=== PATIENT | female | born 1960 | race Caucasian/White ===

== ENCOUNTER → 2019-04-30 07:35 | Outpatient (BNVA) | payer MEDICARE, MEDICAID, SELFPAY | PROVIDERS: Family Provider Internal Medicine; Visit Provider Nurse Practitioner Psychiatric/Mental Health | DX: F33.41 Major depressive disorder, recurrent, in partial remission (principal); F41.9 Anxiety disorder, unspecified; F43.12 Post-traumatic stress disorder, chronic; F17.200 Nicotine dependence, unspecified, uncomplicated | CPT/HCPCS: 99214 ==

== ENCOUNTER → 2019-08-02 08:06 | Outpatient (BNVA) | payer MEDICARE, MEDICAID, SELFPAY | PROVIDERS: Family Provider Internal Medicine; Visit Provider Nurse Practitioner Psychiatric/Mental Health | DX: F43.12 Post-traumatic stress disorder, chronic (principal); F41.9 Anxiety disorder, unspecified; F33.1 Major depressive disorder, recurrent, moderate | CPT/HCPCS: 99212 ==

== ENCOUNTER 2019-10-04 20:00 | Outpatient (CLI) | payer MEDICARE, MEDICAID, SELFPAY | END 2019-10-04 20:01 | disposition home or self-care (01) | LOC: SLEEP 10-05 10:23 | PROVIDERS: Family Provider Internal Medicine; Visit Provider Nurse Practitioner Family | DX: G47.33 Obstructive sleep apnea (adult) (pediatric) (principal) | CPT/HCPCS: 95811 ==

== ENCOUNTER → 2019-11-12 09:51 | Outpatient (BNVA) | payer MEDICARE, MEDICAID, SELFPAY | PROVIDERS: Family Provider Internal Medicine; Visit Provider Nurse Practitioner Psychiatric/Mental Health | DX: F43.12 Post-traumatic stress disorder, chronic (principal); F41.9 Anxiety disorder, unspecified; F33.41 Major depressive disorder, recurrent, in partial remission; F17.200 Nicotine dependence, unspecified, uncomplicated; F10.20 Alcohol dependence, uncomplicated | CPT/HCPCS: G0463 ==

== ENCOUNTER 2019-12-17 20:00 | Outpatient (CLI) | payer MEDICARE, MEDICAID, SELFPAY | END 2019-12-17 20:01 | disposition home or self-care (01) | LOC: SLEEP 12-18 09:29 | PROVIDERS: Family Provider Internal Medicine; Visit Provider Nurse Practitioner Family | DX: G47.33 Obstructive sleep apnea (adult) (pediatric) (principal) | CPT/HCPCS: 95811 ==

== ENCOUNTER → 2020-09-15 07:40 | Outpatient (BNVA) | payer MEDICARE, MEDICAID, SELFPAY | PROVIDERS: Family Provider Internal Medicine; Visit Provider Nurse Practitioner Psychiatric/Mental Health | DX: F33.41 Major depressive disorder, recurrent, in partial remission (principal); F43.12 Post-traumatic stress disorder, chronic; F41.9 Anxiety disorder, unspecified; F17.200 Nicotine dependence, unspecified, uncomplicated | CPT/HCPCS: 99213 ==

== ENCOUNTER → 2020-09-18 08:07 | Outpatient (BNVA) | payer MEDICARE, MEDICAID, SELFPAY | PROVIDERS: Family Provider Internal Medicine; Visit Provider Nurse Practitioner Psychiatric/Mental Health | DX: F33.41 Major depressive disorder, recurrent, in partial remission (principal) | CPT/HCPCS: 80061; 83036 ==

== ENCOUNTER 2020-10-08 07:17 | Outpatient (CLI) | payer MEDICARE, MEDICAID, SELFPAY ==
--- NOTE | 2020-10-08 07:22 | CT_ITS ---
WS: [id number] LDCT LUNG CANCER SCREENING HISTORY: HISTORY OF TOBACCO USE TECHNIQUE: Axial imaging performed from the apices to 1 cm below the costophrenic angles. Coronal and sagittal reformats are submitted with axial MIP series. All CT scans at [facility] use at least one of these dose optimization techniques: automated exposure control; mA and/or kV adjustment per patient size (includes targeted exams where dose is matched to clinical indication); or iterativ e reconstruction. DLP: 82.27 mGy.cm DIvol: 2.53 mGy COMPARISON: None available. Diagnostic quality: Satisfactory Lung Nodules: None. Lungs: Mild hyperexpansion from emphysema. Heart: Normal size heart. No effusion. Other findings: Small mediastinal and hilar lymph nodes. CT/CT lung screening [id number] IMPRESSION: LUNG-RADS: 1-Negative FOLLOW UP: 12 Month: Continue annual screening with LDCT OTHER FINDINGS (S MODIFIER): None.
== END 2020-10-08 07:18 | disposition home or self-care (01) ==
LOC: CT 07:18
PROVIDERS: PCP Internal Medicine; Visit Provider Internal Medicine
DX: Z12.2 Encounter for screening for malignant neoplasm of respiratory organs (principal); Z87.891 Personal history of nicotine dependence
CPT/HCPCS: 71271

== ENCOUNTER → 2020-10-13 07:31 | Outpatient (BNVA) | payer MEDICARE, MEDICAID, SELFPAY | PROVIDERS: PCP Internal Medicine; Visit Provider Nurse Practitioner Psychiatric/Mental Health | DX: F43.12 Post-traumatic stress disorder, chronic (principal); F41.9 Anxiety disorder, unspecified; F33.41 Major depressive disorder, recurrent, in partial remission; F17.200 Nicotine dependence, unspecified, uncomplicated | CPT/HCPCS: 99213 ==

== ENCOUNTER → 2020-12-04 08:29 | Outpatient (BNVA) | payer MEDICARE, MEDICAID, SELFPAY | PROVIDERS: PCP Internal Medicine; Visit Provider Nurse Practitioner Psychiatric/Mental Health | DX: F43.12 Post-traumatic stress disorder, chronic (principal); F41.9 Anxiety disorder, unspecified; F33.41 Major depressive disorder, recurrent, in partial remission | CPT/HCPCS: 99213 ==

== ENCOUNTER 2021-02-10 14:19 | Outpatient (CLI) | payer MEDICARE, MEDICAID, SELFPAY | END 2021-02-10 14:20 | disposition home or self-care (01) | LOC: WOUND 14:20 | PROVIDERS: PCP Internal Medicine; Visit Provider Nurse Practitioner Family | DX: E11.621 Type 2 diabetes mellitus with foot ulcer (principal); L97.522 Non-pressure chronic ulcer of other part of left foot with fat layer exposed; F17.210 Nicotine dependence, cigarettes, uncomplicated; I10 Essential (primary) hypertension; J44.9 Chronic obstructive pulmonary disease, unspecified | CPT/HCPCS: 11042; G0463 ==

== ENCOUNTER 2021-02-17 13:48 | Outpatient (CLI) | payer MEDICARE, MEDICAID, SELFPAY | END 2021-02-17 13:49 | disposition home or self-care (01) | LOC: WOUND 13:49 | PROVIDERS: PCP Internal Medicine; Visit Provider Nurse Practitioner Family | DX: E11.621 Type 2 diabetes mellitus with foot ulcer (principal); L97.522 Non-pressure chronic ulcer of other part of left foot with fat layer exposed; F17.210 Nicotine dependence, cigarettes, uncomplicated; J44.9 Chronic obstructive pulmonary disease, unspecified; I10 Essential (primary) hypertension | CPT/HCPCS: 11042 ==

== ENCOUNTER → 2021-03-05 07:51 | Outpatient (BNVA) | payer MEDICARE, MEDICAID, SELFPAY | PROVIDERS: PCP Internal Medicine; Visit Provider Nurse Practitioner Psychiatric/Mental Health | DX: F43.12 Post-traumatic stress disorder, chronic (principal); F41.9 Anxiety disorder, unspecified; F33.41 Major depressive disorder, recurrent, in partial remission | CPT/HCPCS: 99213 ==

== ENCOUNTER → 2021-05-28 12:38 | Outpatient (BNVA) | payer MEDICARE, MEDICAID, SELFPAY | PROVIDERS: PCP Internal Medicine; Visit Provider Nurse Practitioner Psychiatric/Mental Health | DX: F43.12 Post-traumatic stress disorder, chronic (principal); F41.9 Anxiety disorder, unspecified; F33.41 Major depressive disorder, recurrent, in partial remission; Z79.899 Other long term (current) drug therapy | CPT/HCPCS: 99213 ==

== ENCOUNTER 2021-07-06 12:25 | Outpatient (CLI) | payer MEDICARE, MEDICAID, SELFPAY ==
--- NOTE | 2021-07-06 13:06 | MM_ITS ---
WS: [id number] BILATERAL 3D TOMOSYNTHESIS DIGITAL SCREENING MAMMOGRAPHY WITH CAD CLINICAL INFORMATION: SCREEN HISTORY: Screening mammogram. No current complaints. COMPARISON: None. TECHNIQUE: Bilateral CC and MLO views. FINDINGS: Scattered fibroglandular densities bilaterally. Dystrophic calcification RIGHT breast. A few punctate and lucent centered calcifications. No suspicious focal mass, asymmetry, calcifications, or architec tural distortion. No evidence of malignancy. MM/[place] [id number] IMPRESSION: BI-RADS: 2-Benign FOLLOW UP: 1 Year Follow-up Recommend return to annual screening mammography.
--- NOTE | 2021-07-06 13:27 | XR_ITS ---
WS: [id number] Exam: XR knee LT 3V* [id number] Date/Time of Exam: 07/06/2021 1:54 PM Reason For Exam: CHRONIC RHEUMATOID ARTHRITIS/KNEE ARTHRALGIA No acute fracture or dislocation. Slight narrowing of the medial joint compartment. Small effusion in the suprapatellar bursa. XR/XR knee LT 3V* [id number] IMPRESSION: 1. Mild degenerative change of the medial joint compartment. Small joint effusi on. 2. No fracture.
--- NOTE | 2021-07-06 13:27 | XR_ITS ---
WS: [id number] Exam: XR knee RT 3V* [id number] Date/Time of Exam: 07/06/2021 1:54 PM Reason For Exam: CHRONIC RHEUMATOID ARTHRITIS/KNEE ARTHRALGIA No acute fracture or dislocation. Mild to moderate narrowing of the medial joint compartment. No sign ificant joint effusion seen. XR/XR knee RT 3V* [id number] IMPRESSION: 1. Degenerative thinning of the medial joint compartment. 2. No fracture or joint effusion.
== END 2021-07-06 12:26 | disposition home or self-care (01) ==
LOC: RADSHAW 12:28
PROVIDERS: PCP Internal Medicine; Visit Provider Family Medicine
DX: M06.9 Rheumatoid arthritis, unspecified (principal); M17.0 Bilateral primary osteoarthritis of knee; M25.562 Pain in left knee; M25.561 Pain in right knee; M25.462 Effusion, left knee; Z12.31 Encounter for screening mammogram for malignant neoplasm of breast
CPT/HCPCS: 73562; 77063; 77067

== ENCOUNTER → 2021-09-01 09:13 | Outpatient (BNVA) | payer MEDICARE, MEDICAID, SELFPAY | PROVIDERS: PCP Internal Medicine; Referring Provider Family Medicine; Visit Provider Internal Medicine | DX: J44.9 Chronic obstructive pulmonary disease, unspecified (principal); Z99.81 Dependence on supplemental oxygen; M06.9 Rheumatoid arthritis, unspecified; Z11.59 Encounter for screening for other viral diseases; R76.8 Other specified abnormal immunological findings in serum; F17.210 Nicotine dependence, cigarettes, uncomplicated | CPT/HCPCS: 36415; 80053; 85025; 85651; 86140; 86200; 86704; 87340; 99204 ==

== ENCOUNTER → 2021-09-14 08:57 | Outpatient (BNVA) | payer MEDICARE, MEDICAID, SELFPAY | PROVIDERS: PCP Internal Medicine; Visit Provider Nurse Practitioner Psychiatric/Mental Health | DX: F33.41 Major depressive disorder, recurrent, in partial remission (principal); Z79.899 Other long term (current) drug therapy | CPT/HCPCS: 80061; 83036; 99214 ==

== ENCOUNTER → 2021-09-17 10:43 | Outpatient (BNVA) | payer MEDICARE, MEDICAID, SELFPAY | PROVIDERS: PCP Family Medicine; Visit Provider Internal Medicine | DX: M05.9 Rheumatoid arthritis with rheumatoid factor, unspecified (principal); Z99.81 Dependence on supplemental oxygen | CPT/HCPCS: 93005; 99214 ==

== ENCOUNTER 2021-09-17 12:00 | Outpatient (CLI) | payer MEDICARE, MEDICAID, SELFPAY ==
--- NOTE | 2021-09-17 13:38 | ECG_ITS ---
[facility] Test Date: 2021-09-17 Pat Name: Amy Black Department: Room: Gender: Female Veterans Services Specialist: : 1960 Requested By: Eusebio Cortez Order Number: [id number] Iza MD: Lalo Faustin M.D. Measurements Intervals [place] Rate: 75 P: 68 [place]: 173 QRS: 67 QRSD: 90 T: 48 QT: 369 QTc: 415 Interpretive Statements SINUS RHYTHM LOW QRS VOLTAGE IN PRECORDIAL LEADS [QRS DEFLECTION < 1.0 mV IN CHEST LEADS] No previous ECG available for comparison Electronically Signed On 09-17-2021 18:59:42 CDT by Lalo Faustin M.D. [email or web address] Networksmemorial hospital at gulfportiHydroRunregency hospital clevel[facility] west.[employer]/store/NU/[id number] f
== END 2021-09-17 12:01 | disposition home or self-care (01) ==
LOC: RT 12:03
PROVIDERS: PCP Family Medicine; Visit Provider Internal Medicine
DX: Z99.81 Dependence on supplemental oxygen (principal)
CPT/HCPCS: 93005

== ENCOUNTER → 2021-09-28 12:39 | Outpatient (BNVA) | payer MEDICARE, MEDICAID, SELFPAY | PROVIDERS: PCP Family Medicine; Visit Provider Internal Medicine Pulmonary Disease | DX: J44.9 Chronic obstructive pulmonary disease, unspecified (principal); Z99.81 Dependence on supplemental oxygen; R06.00 Dyspnea, unspecified; Z71.6 Tobacco abuse counseling; Z12.2 Encounter for screening for malignant neoplasm of respiratory organs; F33.41 Major depressive disorder, recurrent, in partial remission; F17.210 Nicotine dependence, cigarettes, uncomplicated | CPT/HCPCS: 99204 ==

== ENCOUNTER → 2021-10-26 13:11 | Outpatient (BNVA) | payer MEDICARE, MEDICAID, SELFPAY | PROVIDERS: PCP Family Medicine; Visit Provider Internal Medicine Pulmonary Disease | DX: R06.00 Dyspnea, unspecified (principal); J44.9 Chronic obstructive pulmonary disease, unspecified; Z99.81 Dependence on supplemental oxygen; F17.200 Nicotine dependence, unspecified, uncomplicated; Z71.6 Tobacco abuse counseling; Z12.2 Encounter for screening for malignant neoplasm of respiratory organs | CPT/HCPCS: 99214 ==

== ENCOUNTER 2021-11-05 13:10 | Outpatient (CLI) | payer MEDICARE, MEDICAID, SELFPAY ==
--- NOTE | 2021-11-05 14:20 | PFTS_ITS ---
Date of Study:11/05/21 Date of Dictation: MECHANICS: Forced vital capacity (FVC) is reduced. Forced expiratory volume in one second (FEV1) is reduced. FEV1/FVC is reduced. FLOW VOLUME LOOP: Reduced flow at all lung volumes with scooping. LUNG VOLUMES: Total lung capacity (TLC) is normal. Residual volume (RV) is increased. DIFFUSING CAPACITY FOR CARBON MONOXIDE: Mildly reduced. INTERPRETATION: The prebronchodilator spirometry is consistent with severe airflow obstruction. The postbronchodilator spirometry is consistent with moderate airflow obstruction. There is a significant postbronchodilator response. Lung volumes are consistent with air trapping. Gas exchange (DLCO) is mildly reduced. MTDD
== END 2021-11-05 13:11 | disposition home or self-care (01) ==
LOC: RT 13:14
PROVIDERS: PCP Family Medicine; Visit Provider Internal Medicine Pulmonary Disease
DX: J44.9 Chronic obstructive pulmonary disease, unspecified (principal); Z99.81 Dependence on supplemental oxygen
CPT/HCPCS: 94060; 94618; 94726; 94729; J7611

== ENCOUNTER 2021-11-12 13:35 | Outpatient (CLI) | payer MEDICARE, MEDICAID, SELFPAY ==
--- NOTE | 2021-11-12 13:44 | CT_ITS ---
WS: [id number] LDCT LUNG CANCER SCREENING TECHNIQUE: Noncontrast CT of the chest with coronal and sagittal reformatted images. CLINICAL INFORMATION: lung screening COMPARISON: 10/08/20 DLP: 76.19 mGy.cm DIvol: Mean CTDIvol: 1.60 (mGy) All CT scans at [facility] use at least one of these dose optimization techniques: automat ed exposure control; mA and/or kV adjustment per patient size (includes targeted exams where dose is matched to clinical indication); or iterative reconstruction. FINDINGS: Lungs are well aerated. Slight subsegmental atelectasis in the lingula. No acute pulmonary infiltrates. No new suspicious pulmonary parenchymal abnormalities. A few prominent peribronchial lymph nodes unchanged. Adrenal glands are normal. Normal GE junction. Normal caliber thoracic aorta. Normal aortic arch. Nor mal descending thoracic aorta. No axillary lymphadenopathy. Hypertrophic changes thoracic spine. CT/CT lung screening [id number] IMPRESSION: LUNG-RADS: 1-Negative FOLLOW UP: 12 Month: Continue annual screening with LDCT
== END 2021-11-12 13:36 | disposition home or self-care (01) ==
LOC: RAD 13:37
PROVIDERS: PCP Family Medicine; Visit Provider Internal Medicine Pulmonary Disease
DX: Z12.2 Encounter for screening for malignant neoplasm of respiratory organs (principal); F17.210 Nicotine dependence, cigarettes, uncomplicated
CPT/HCPCS: 71271

== ENCOUNTER → 2021-11-24 12:26 | Outpatient (BNVA) | payer MEDICARE, OTHER, MEDICAID, SELFPAY | PROVIDERS: PCP Family Medicine; Visit Provider Internal Medicine Pulmonary Disease | DX: R06.00 Dyspnea, unspecified (principal); J43.9 Emphysema, unspecified; Z99.81 Dependence on supplemental oxygen; Z71.6 Tobacco abuse counseling; Z12.2 Encounter for screening for malignant neoplasm of respiratory organs; F17.210 Nicotine dependence, cigarettes, uncomplicated | CPT/HCPCS: 99214 ==

== ENCOUNTER → 2021-12-09 10:23 | Outpatient (BNVA) | payer MEDICARE, MEDICAID, SELFPAY | PROVIDERS: PCP Family Medicine; Visit Provider Internal Medicine | DX: M05.9 Rheumatoid arthritis with rheumatoid factor, unspecified (principal); J44.9 Chronic obstructive pulmonary disease, unspecified; Z99.81 Dependence on supplemental oxygen | CPT/HCPCS: 99213; 99214 ==

== ENCOUNTER 2022-11-24 14:42 | Outpatient (CLI) | payer OTHER, MEDICARE, MEDICAID, SELFPAY ==
--- NOTE | 2022-11-24 14:52 | MM_ITS ---
WS: [id number] BILATERAL 3D TOMOSYNTHESIS DIGITAL SCREENING MAMMOGRAPHY WITH CAD CLINICAL INFORMATION: SCREENING HISTORY: Screening mammogram. No current complaints. COMPARISON: 2021 TECHNIQUE: Bilateral CC and MLO views. FINDINGS: The breasts are composed of heterogeneous fibroglandular density tissue, which can limit the detectio n of small underlying mass lesions. Increasing asymmetric density outer LEFT breast near the 3 o'cloc k position and measuring 8 mm. Recommend LEFT breast diagnostic mammography and ultrasound if persist ent. Prominent dystrophic calcification RIGHT breast unchanged. A few incidental punctate and lucent cente red calcifications bilaterally. Stable clustered calcifications posterior RIGHT breast. RIGHT breast is unchanged and unremarkable. IMPRESSION: MM/[place] [id number] BI-RADS: 0-Incomplete: Need additional imaging evaluation FOLLOW UP: Need Additional Imaging
== END 2022-11-24 14:43 | disposition home or self-care (01) ==
LOC: RAD 14:48
PROVIDERS: PCP Family Medicine; Visit Provider Family Medicine
DX: Z12.31 Encounter for screening mammogram for malignant neoplasm of breast (principal)
CPT/HCPCS: 77063; 77067

== ENCOUNTER 2022-12-30 10:35 | Outpatient (CLI) | payer MEDICARE, MEDICAID, SELFPAY ==
--- NOTE | 2022-12-30 10:53 | MM_ITS ---
WS: [id number] LEFT 3D TOMOSYNTHESIS DIGITAL MAMMOGRAPHY WITH CAD CLINICAL INFORMATION: ABNORMAL MAMMO HISTORY: Additional views COMPARISON: 11/24/2022 TECHNIQUE: 3 views of the left breast were obtained. FINDINGS: Scattered fibroglandular densities of the left breast. Stable asymmetric density outer LEFT breast ne ar the 3 o'clock position. LEFT breast ultrasound is pending. ULTRASOUND BREAST LEFT TECHNIQUE: Ultrasound left breast focused area of concern. CLINICAL INFORMATION: ABNORMAL MAMMO FINDINGS: Ultrasound LEFT breast at the 2 to 4 o'clock position. Dense underlying parenchymal tissue. No suspic ious cystic or solid lesions. No lesions to target for biopsy. Recommend return to annual screen mamm ography. IMPRESSION: MM/[place] [id number] BI-RADS: 2-Benign FOLLOW UP: 1 Year Follow-up Recommend return to annual screening mammography.
== END 2022-12-30 10:36 | disposition home or self-care (01) ==
PROVIDERS: PCP Family Medicine; Visit Provider Family Medicine
DX: R92.8 Other abnormal and inconclusive findings on diagnostic imaging of breast (principal)
CPT/HCPCS: 76642; 77061; G0279

== ENCOUNTER 2023-01-31 19:26 | Emergency (ER) | payer MEDICARE, MEDICAID, SELFPAY ==
[2023-01-31 19:27] VITALS: BP 159/86; PULSE 115; RESP 20; TEMP 36.6; O2SAT 91; BMI 33.6
--- NOTE | 2023-01-31 19:32 | XRR_ITS ---
PROCEDURE INFORMATION: Exam: XR Chest Exam date and time: 01/31/2023 7:58 PM Age: 62 years old Clinical indication: Shortness of breath; Additional info: SOB TECHNIQUE: Imaging protocol: Radiologic exam of the chest. Views: 1 view. COMPARISON: CT lung screening [id number] 11/12/2021 1:51 PM FINDINGS: Lungs: Lungs are clear bilaterally. Pleural spaces: No pleural effusion. No pneumothorax. Heart/Mediastinum: The cardiac silhouette and mediastinal contours are unremarkable. Vasculature: Vascular calcifications in the aorta. Bones/joints: Unremarkable for age. XR/XR chest 1V portable [id number] IMPRESSION: 1. No acute cardiopulmonary process. 2. Incidental/nonacute findings are listed in the report.
--- NOTE | 2023-01-31 19:45 | W.ED.SOB ---
HPI - SOB/Dyspnea General: Chief Complaint: Shortness of Breath/Dyspnea Stated Complaint: difficulty breathing Time Seen by Provider: 01/31/23 19:27 Source: patient and EMS Mode of arrival: EMS Limitations: no limitations History of Present Illness: HPI Narrative: 62-year-old female who has a long history of COPD she is on 4 L oxygen at baseline states over the last 2 days she has had increasing wheezing and shortness of breath states she had a productive cough as well EMS given her per terbutaline Decadron and a breathing treatment in route she is currently 93% on her 4 L she denies any fevers denies any chest pain. Associated symptoms: Deny abdominal pain, chest pain, fever(s), nausea or vomiting Review of Systems Const: Denies: fever(s), chills, body aches or change in appetite ENMT: Denies: throat pain or dental pain Card: Denies: chest pain Resp: Reports: dyspnea and productive cough GI: Denies: abdominal pain, nausea, vomiting or diarrhea Musc: Denies: neck pain or back pain Skin/Breast: Denies: rash Neuro: Denies: headache(s) Psych: Denies: depression PFSH ED PFSH: Medical History Anxiety disorder, unspecified Chronic post-traumatic stress disorder (PTSD) COPD (chronic obstructive pulmonary disease) Major depressive disorder, recurrent, in partial remission Major depressive disorder, recurrent, moderate See subjective information below. Other fci (current) drug therapy Oxygen dependent Rheumatoid factor positive Tobacco use disorder Social History Smoking and tobacco/nicotine status: current every day tobacco/nicotine user cigarettes Packs smoked per day: 1.5 Years cigarettes smoked: 50 [ Other cigarette details: 1ppd ] Quit status (tobacco/nicotine): has tried quititng Number of times tried to quit tobacco: 2 Second hand smoke exposure: Yes Physical Exam Const: COMMON NORMALS: patient oriented x3 HENMT: COMMON NORMALS: normocephalic and atraumatic HEAD & SCALP: normocephalic and atraumatic Eye: COMMON NORMALS: Equal, round and reactive pupils present and EOMs intact bilaterally PUPIL: Yes Equal, round and reactive pupils present Neck/C-Spine: COMMON NORMALS: full ROM and supple Chest: COMMONS NORMALS: normal inspection of the chest and normal palpation of entire chest wall Resp: COMMON NORMALS: No retractions and No use of accessory muscles AUSCULTATION: wheezes Cardio: COMMON NORMALS: regular rhythm and No murmurs present (Cardio) RATE: tachycardic RHYTHM: regular rhythm GI: COMMON NORMALS: Normal to inspection, nondistended, normoactive bowel sounds present, Soft to palpation, non-tender and no masses PALPATION: Yes Soft to palpation Extremity: COMMON NORMALS: normal to inspection and full ROM Neuro: COMMON NORMALS: patient oriented x3, moves all extremities and no focal motor deficits Psych: COMMON NORMALS: mental status grossly normal, Normal thought process present and cooperative THOUGHT PROCESS: Normal thought process present Skin: COMMON NORMALS: no rashes or lesions noted and no wounds GENERAL SKIN EXAM: no rashes or lesions noted Course Vital Signs: Vital signs: Vital Signs Temperature 97.8 F 01/31/23 19:27 Pulse Rate 103 H 01/31/23 20:49 Respiratory Rate 18 01/31/23 20:49 Blood Pressure 112/86 01/31/23 20:49 Pulse Oximetry 91 01/31/23 20:49 Oxygen Delivery Me thod Nasal Cannula 01/31/23 20:37 Oxygen Flow Rate 4 01/31/23 20:37 MDM - SOB/Dyspnea Medical Decision Making Patient presents here with a COPD exacerbation along with likely bronchitis she has coughed up green sputum we will place her on antibiotics along with a 5-day steroid course she is much improved after breathing treatments she is 93% here on her 4 L no severe hypoxia no pneumonia she is to follow-up with her PCP and return if worsening she understands agrees to plan. Medical Records I reviewed the patient's medical records. Lab Data I reviewed the patient's lab results. 01/31/23 19:47 01/31/23 19:47 Labs/Radiology: Radiology Impressions Chest X-Ray 01/31/23 19:32 IMPRESSION: 1. No acute cardiopulmonary process. 2. Incidental/nonacute findings are listed in the report. Laboratory Results WBC 13.83 10^3/uL (3.29-11.43) H 01/31/23 19:47 RBC 4.77 10^6/uL (3.85-5.65) 01/31/23 19:47 Hgb 13.60 g/dL (11.27-16.99) 01/31/23 19:47 Hct 42.5 % (36-47) 01/31/23 19:47 MCV 89.1 fl (85-98) 01/31/23 19:47 MCH 28.5 pg (27-33) 01/31/23 19:47 MCHC 32.0 g/dL (30-55) 01/31/23 19:47 RDW 13.8 % (12.1-15.1) 01/31/23 19:47 Plt Count 299 10^3/cmm (157-399) 01/31/23 19:47 MPV 10.7 fL (7.4-10.4) H 01/31/23 19:47 Neut % (Auto) 70.8 % 01/31/23 19:47 Lymph % (Auto) 18.9 % 01/31/23 19:47 Tyler % (Auto) 7.4 % 01/31/23 19:47 Eos % (Auto) 2.2 % 01/31/23 19:47 Baso % (Auto) 0.3 % 01/31/23 19:47 Neut # (Auto) 9.80 10^3/uL (1.8-7.7) H 01/31/23 19:47 Lymph # (Auto) 2.6 10^3/uL (0.8-4.8) 01/31/23 19:47 Tyler # (Auto) 1.0 10^3/uL (0.2-0.9) H 01/31/23 19:47 Eos # (Auto) 0.3 10^3/uL (0.0-0.8) 01/31/23 19:47 Baso # (Auto) 0.0 10^3/uL (0.0-0.1) 01/31/23 19:47 Nucleated RBC % (auto) 0 % 01/31/23 19:47 Nucleated RBCs # 0.0 /100WBC 01/31/23 19:47 Specimen Type Arterial 01/31/23 19:41 Sample Site Radial, right 01/31/23 19:41 ABG pH 7.39 (7.35-7.45) 01/31/23 19:41 ABG pCO2 49.3 mmHg (35-45) H 01/31/23 19:41 ABG pO2 51.9 mmHg (80.0-100.0) L 01/31/23 19:41 ABG HCO3 29.5 mmol/L (22-26) H 01/31/23 19:41 ABG Base Excess 3.4 mmol/L (-2.0-2.0) H 01/31/23 19:41 Frankie Test Pos 01/31/23 19:41 Hematocrit 41.3 % (37-47) 01/31/23 19:41 Hgb O2 Saturation 85.7 % (95-100) L 01/31/23 19:41 Carboxyhemoglobin 2.2 %THgb (0.4-20.1) 01/31/23 19:41 Methemoglobin 0.3 % (0.4-1.5) L 01/31/23 19:41 Total Hemoglobin 13.5 g/dL (12-16) 01/31/23 19:41 O2 Delivery Device Nc 01/31/23 19:41 O2 Liters/Min 4.0 % 01/31/23 19:41 Licensed Occupational Therapist ID [place] 01/31/23 19:41 Sodium 138 mmol/L (136-145) 01/31/23 19:47 Potassium 3.9 mmol/L (3.5-5.1) 01/31/23 19:47 Chloride 98 mmol/L (98-107) 01/31/23 19:47 Carbon Dioxide 30 mmol/L (22-29) H 01/31/23 19:47 Anion Gap 13.9 (5-19) 01/31/23 19:47 BUN 12 mg/dL (8-23) 01/31/23 19:47 Creatinine 0.5 mg/dL (0.5-0.9) 01/31/23 19:47 GFR Calculation 125.9 mL/min (90-130) 01/31/23 19:47 Glucose 132 mg/dL (65-115) H 01/31/23 19:47 Calculated Osmolality 288 mOsm/kg (285-295) 01/31/23 19:47 Calcium 9.4 mg/dL (8.5-10.5) 01/31/23 19:47 Total Bilirubin 0.4 mg/dL (0.15-1.2) 01/31/23 19:47 AST 14 U/L (0-32) 01/31/23 19:47 ALT 13 U/L (0-33) 01/31/23 19:47 Alkaline Phosphatase 124 U/L (35-105) H 01/31/23 19:47 NT-Pro-B Natriuret Pep 90 pg/mL (0-125) 01/31/23 19:47 Total Protein 7.0 g/dL (6.6-8.7) 01/31/23 19:47 Albumin 4.3 g/dL (3.5-5.2) 01/31/23 19:47 Globulin 2.7 g/dL (1.3-4.6) 01/31/23 19:47 All radiology interpretation(s) finalized by discharge EKG Data EKG 1: I personally reviewed and interpreted this EKG as follows: EKG Interpretation Date: 01/31/23 EKG interpretation time: 19:30 Interpretation: sinus tach hr [address] or t wave abnormalities qrs 86 qtc 378 Discharge Plan Discharge Patient Disposition: Home Clinical Impression: Acute exacerbation of chronic obstructive airways disease Condition: Stable Prescriptions: New prednisone 50 mg tablet 50 mg PO DAILY Qty: 5 0RF doxycycline hyclate 100 mg tablet 100 mg PO BID 7 Days Qty: 14 0RF No Action albuterol sulfate [Ventolin HFA] 90 mcg/actuation HFA aerosol inhaler 2 puff INHALATION Q6H PRN losartan 100 mg tablet 100 mg PO DAILY montelukast 10 mg tablet 10 mg PO DAILY atorvastatin 40 mg tablet 80 mg PO DAILY metformin 850 mg tablet 850 mg PO TID meloxicam 15 mg tablet 15 mg PO DAILY diclofenac sodium [Voltaren Arthritis Pain] 1 % gel 4 g topical QID Qty: 100 4RF Rx Instructions: apply to single knee, ankle, foot; for foot includes sole/toes/top of foot aripiprazole 10 mg tablet 10 mg PO DAILY Qty: 60 0RF Rx Instructions: one tablet by mouth every morning escitalopram oxalate 20 mg tablet 20 mg PO DAILY Qty: 60 0RF Rx Instructions: one tablet by mouth every morning buspirone 15 mg tablet 15 mg PO BID Qty: 120 0RF Rx Instructions: Take one tablet morning and evening budesonide-formoterol [Symbicort] 160-4.5 mcg/actuation HFA aerosol inhaler 1 puff inhalation BID Spiriva with HandiHaler 18 mcg capsule, w/inhalation device 1 cap inhalation DAILY Rx Instructions: puncture 1 cap using device; one dose = 2 inhalations hydroxychloroquine 200 mg tablet 200 mg PO DAILY 30 Days Qty: 30 2RF nicotine (polacrilex) 2 mg gum 2 mg buccal Q2H Qty: 20 10RF Discharge Orders: Discharge ED (Routine); Ordered 01/31/23 Ordered By: Mayra Bower Referrals: Teddy Will MD [Primary Care Provider] - 1-3 days Discharge Diet: Advance as tolerated Discharge Activity: Resume usual activity Patient Instructions: Chronic Bronchitis (ED) Coding Level of Care Code ED Sound Installation Worker for Himanshu Szymanski
[2023-01-31 19:52] LABS: ABG PCO2 49.3 mmHg (35-45); ABG PH Result 7.39 (7.35-7.45); Arterial Blood Gas Hematocrit 41.3 % (37-47); Base Excess ABG 3.4 mmol/L (-2.0-2.0); Blood Gas Allen Test Pos; Blood Gas Operator Identificat WALCI; Blood Gas Sample Site Radial, right; Blood Gas Sample Type Arterial; Carboxyhemoglobin 2.2 %THgb (0.4-20.1); HCO3 ABG 29.5 mmol/L (22-26); HGB O2 Sat 85.7 % (95-100); Methemoglobin 0.3 % (0.4-1.5); Oxygen Device NC; PO2 ABG 51.9 mmHg (80.0-100.0); Total Hemoglobin 13.5 g/dL (12-16)
[2023-01-31 19:59] LABS: Basophils % 0.3 %; Eosinophils # 0.3 10^3/uL (0.0-0.8); Eosinophils % 2.2 %; Hematocrit 42.5 % (36-47); Lymphocytes # 2.6 10^3/uL (0.8-4.8); Lymphocytes % 18.9 %; Mean Corpuscular Hemoglobin 28.5 pg (27-33); Mean Corpuscular Volume 89.1 fl (85-98); Mean Platelet Volume 10.7 fL (7.4-10.4); Monocytes % 7.4 %; Neutrophils % 70.8 %; Nucleated Red Blood Cells % 0 %; Platelet Count 299 10^3/cmm (157-399); Red Blood Count 4.77 10^6/uL (3.85-5.65); Red Cell Distribution Width 13.8 % (12.1-15.1); White Blood Count 13.83 10^3/uL (3.29-11.43)
[2023-01-31 20:23] LABS: Alanine Aminotransferase 13 U/L (0-33); Albumin Level 4.3 g/dL (3.5-5.2); Alkaline Phosphatase 124 U/L (35-105); Anion Gap 13.9 (5-19); Aspartate Amino Transferase 14 U/L (0-32); Blood Urea Nitrogen 12 mg/dL (8-23); Calcium 9.4 mg/dL (8.5-10.5); Carbon Dioxide 30 mmol/L (22-29); Chloride 98 mmol/L (98-107); Creatinine Clr Calc Pharmacy 129.1652; Globulin 2.7 g/dL (1.3-4.6); Glomerular Filtration Rate 125.9 mL/min (90-130); Glucose 132 mg/dL (65-115); NT Pro B Type Natriuretic Pept 90 pg/mL (0-125); Osmolality Calculated 288 mOsm/kg (285-295); Potassium 3.9 mmol/L (3.5-5.1); Sodium 138 mmol/L (136-145); Total Bilirubin 0.4 mg/dL (0.15-1.2)
[2023-01-31] MEDS: methylPREDNISolone sod succ 125 MG in water for injection-sterile 2 ML 24 MG IVP (20:29)
[2023-01-31 20:37] VITALS: PULSE 104; RESP 18; O2SAT 90
[2023-01-31] MEDS: albuterol 2.5 mg/3 mL Neb INHALATION (20:39)
[2023-01-31] MEDS: doxycycline 100 mg Tablet PO (20:42)
[2023-01-31 20:49] VITALS: BP 112/86; PULSE 103; RESP 18; O2SAT 91
[2023-01-31 21:07] LABS: Influenza A by IFA negative (Negative); Influenza B by IFA negative (Negative); SARS Covid-2 Antigen negative (Negative)
--- NOTE | 2023-02-01 07:14 | ECG_ITS ---
[facility] Test Date: 2023-01-31 Pat Name: Amy Black Department: Room: Gender: Female Director Of Strategic Sourcing: : 1960 Requested By: Mayra Bower Order Number: [id number] Iza MD: Heather Oviedo M.D. Measurements Intervals [place] Rate: 113 P: 78 [place]: 147 QRS: 76 QRSD: 86 T: 35 QT: 311 QTc: 427 Interpretive Statements SINUS TACHYCARDIA POSSIBLE LEFT ATRIAL ENLARGEMENT [-0.1mV P-WAVE IN V1/V2] LOW QRS VOLTAGE IN PRECORDIAL LEADS [QRS DEFLECTION < 1.0 mV IN CHEST LEADS] NONSPECIFIC T-WAVE ABNORMALITY ABNORMAL RHYTHM ECG Compared to ECG 09/17/2021 12:13:48 T-wave abnormality now present Sinus rhythm no longer present Electronically Signed On 02-01-2023 23:23:13 ICE CREAM MAN by Heather Oviedo M.D. [id number] f
== END 2023-01-31 20:53 | disposition home or self-care (01) ==
PROVIDERS: Emergency Provider Emergency Medicine; PCP Family Medicine
DX: J44.1 Chronic obstructive pulmonary disease with (acute) exacerbation (principal); Z79.84 Long term (current) use of oral hypoglycemic drugs; Z99.81 Dependence on supplemental oxygen; F17.210 Nicotine dependence, cigarettes, uncomplicated; Z11.52 Encounter for screening for COVID-19
CPT/HCPCS: 36600; 71045; 80053; 82805; 83880; 85025; 87426; 87804; 94640; 96374; 99285; J2930; J7613

== ENCOUNTER 2023-02-24 10:34 | Outpatient (CLI) | payer MEDICARE, MEDICAID, SELFPAY ==
--- NOTE | 2023-02-24 10:39 | CT_ITS ---
WS: [id number] LDCT LUNG CANCER SCREENING HISTORY: NICOTINE DEPENDENCE,CIGARETTES TECHNIQUE: Axial imaging performed from the apices to 1 cm below the costophrenic angles. Coronal and sagittal reformats are submitted with axial MIP series. All CT scans at [facility] use at least one of these dose optimization techniques: automated exposure control; mA and/or kV adjustment per patient size (includes targeted exams where dose is matched to clinical indication); or iterativ e reconstruction. DLP: 88.62 mGy.cm DIvol: Mean CTDIvol: 2.20 (mGy) COMPARISON: None available. Diagnostic quality: Satisfactory Lungs: New subpleural tagging RIGHT upper lobe. No mass or pulmonary nodule. No endobronchial lesions . Heart: Normal size heart with no pericardial effusion.. Other findings: No adenopathy. Small benign-appearing lymph nodes and mild atherosclerosis aorta. IMPRESSION: CT/CT lung screening [id number] LUNG-RADS: 2-Benign Appearance or Behavior FOLLOW UP: 12 Month: Continue annual screening with LDCT OTHER FINDINGS (S MODIFIER): None.
== END 2023-02-24 10:35 | disposition home or self-care (01) ==
LOC: RAD 10:34
PROVIDERS: PCP Family Medicine; Visit Provider Family Medicine
DX: Z12.2 Encounter for screening for malignant neoplasm of respiratory organs (principal); F17.210 Nicotine dependence, cigarettes, uncomplicated
CPT/HCPCS: 71271

== ENCOUNTER → 2023-04-26 09:18 | Outpatient (BNVA) | payer MEDICARE, MEDICAID, SELFPAY | PROVIDERS: PCP Family Medicine; Visit Provider Internal Medicine Rheumatology | DX: Z79.899 Other long term (current) drug therapy (principal); R76.8 Other specified abnormal immunological findings in serum; M05.79 Rheumatoid arthritis with rheumatoid factor of multiple sites without organ or systems involvement; Z71.85 Encounter for immunization safety counseling; M17.0 Bilateral primary osteoarthritis of knee | CPT/HCPCS: 36415; 80076; 82565; 85025; 86140; 99214 ==

== ENCOUNTER → 2023-08-23 10:02 | Outpatient (BNVA) | payer MEDICARE, MEDICAID, SELFPAY | PROVIDERS: PCP Family Medicine; Visit Provider Internal Medicine Rheumatology | DX: Z79.899 Other long term (current) drug therapy (principal); M05.79 Rheumatoid arthritis with rheumatoid factor of multiple sites without organ or systems involvement; Z71.85 Encounter for immunization safety counseling; M17.0 Bilateral primary osteoarthritis of knee | CPT/HCPCS: 99214 ==

== ENCOUNTER → 2023-11-18 07:47 | Outpatient (BNVA) | payer MEDICARE, MEDICAID, SELFPAY | PROVIDERS: PCP Family Medicine; Visit Provider Internal Medicine Critical Care Medicine | DX: Z12.2 Encounter for screening for malignant neoplasm of respiratory organs; J96.21 Acute and chronic respiratory failure with hypoxia; J96.22 Acute and chronic respiratory failure with hypercapnia; J44.9 Chronic obstructive pulmonary disease, unspecified; E66.9 Obesity, unspecified; R53.81 Other malaise; Z68.32 Body mass index [BMI] 32.0-32.9, adult; Z71.82 Exercise counseling; Z71.6 Tobacco abuse counseling; F17.210 Nicotine dependence, cigarettes, uncomplicated | CPT/HCPCS: 99214 ==

== ENCOUNTER → 2023-12-22 10:51 | Outpatient (BNVA) | payer MEDICARE, MEDICAID, SELFPAY | PROVIDERS: PCP Family Medicine; Visit Provider Student in an Organized Health Care Education/Training Program | DX: Z12.11 Encounter for screening for malignant neoplasm of colon (principal) | CPT/HCPCS: 99024; 99204 ==

== ENCOUNTER → 2024-01-16 09:10 | Outpatient (BNVA) | payer MEDICARE, MEDICAID, SELFPAY | PROVIDERS: PCP Family Medicine; Visit Provider Internal Medicine Rheumatology | DX: Z79.899 Other long term (current) drug therapy (principal); M05.79 Rheumatoid arthritis with rheumatoid factor of multiple sites without organ or systems involvement; M54.2 Cervicalgia; Z71.85 Encounter for immunization safety counseling; M17.0 Bilateral primary osteoarthritis of knee | CPT/HCPCS: 36415; 72040; 80076; 82565; 85025; 85651; 86140; 99214 ==

== ENCOUNTER 2024-02-27 10:18 | Outpatient (CLI) | payer MEDICARE, MEDICAID, SELFPAY ==
--- NOTE | 2024-02-27 10:30 | CT_ITS ---
WS: [id number] LDCT LUNG CANCER SCREENING TECHNIQUE: Noncontrast CT of the chest with coronal and sagittal reformatted images. CLINICAL INFORMATION: lung ca screening COMPARISON: 02/24/2023 DLP: 81.21 mGy.cm DIvol: Mean CTDIvol: 2.00 (mGy) All CT scans at [facility] use at least one of these dose optimization techniques: automat ed exposure control; mA and/or kV adjustment per patient size (includes targeted exams where dose is matched to clinical indication); or iterative reconstruction. FINDINGS: Slight subsegmental atelectasis in the lingula. No new suspicious pulmonary parenchymal abnormalitie s. Tiny nodule the RIGHT middle lobe. Subsegmental atelectasis RIGHT middle lobe and RIGHT lower lobe . Subsegmental atelectasis in the lingula A few prominent peribronchial lymph nodes unchanged. Adrenal glands are normal. Normal GE junction. N ormal caliber thoracic aorta. Normal aortic arch. Normal descending thoracic aorta. No axillary lymph adenopathy. Hypertrophic changes thoracic spine. CT/CT lung screening [id number] IMPRESSION: LUNG-RADS: 2-Benign Appearance or Behavior FOLLOW UP: 12 Month: Continue annual screening with LDCT
== END 2024-02-27 10:19 | disposition home or self-care (01) ==
LOC: RAD 10:18
PROVIDERS: PCP Family Medicine; Visit Provider Internal Medicine Critical Care Medicine
DX: Z12.2 Encounter for screening for malignant neoplasm of respiratory organs (principal); R91.1 Solitary pulmonary nodule; F17.210 Nicotine dependence, cigarettes, uncomplicated; J96.22 Acute and chronic respiratory failure with hypercapnia; J44.9 Chronic obstructive pulmonary disease, unspecified; J98.11 Atelectasis; M89.48 Other hypertrophic osteoarthropathy, other site
CPT/HCPCS: 71271

== ENCOUNTER 2024-03-23 10:05 | Outpatient (CLI) | payer OTHER, MEDICAID, SELFPAY ==
--- NOTE | 2024-03-23 10:14 | MM_ITS ---
WS: [id number] BILATERAL SCREENING DIGITAL TOMOSYNTHESIS MAMMOGRAM WITH CAD HISTORY: SCREENING COMPARISON: 12/30/2022, 11/24/2022, 07/06/2021 Bilateral CC and MLO views with tomosynthesis and synthetic mammography submitted. Computer aided det ection analyzed. Breast composition: The breasts are heterogeneously dense, which may obscure small masses. No suspici ous masses, microcalcifications or architectural distortion. Benign calcifications in each breast. As ymmetric stable density in the anterior RIGHT breast. MM/MM [facility] tomosynthesis [id number] IMPRESSION: BI-RADS: 2 - Benign FOLLOW UP: 1 Year Follow-up
== END 2024-03-23 10:06 | disposition home or self-care (01) ==
LOC: RAD 10:12
PROVIDERS: PCP Family Medicine; Visit Provider Family Medicine
DX: Z12.31 Encounter for screening mammogram for malignant neoplasm of breast (principal); R92.333 Mammographic heterogeneous density, bilateral breasts; R92.1 Mammographic calcification found on diagnostic imaging of breast; N64.89 Other specified disorders of breast
CPT/HCPCS: 77063; 77067

== ENCOUNTER → 2024-07-09 09:12 | Outpatient (BNVA) | payer MEDICARE, SELFPAY | PROVIDERS: PCP Family Medicine; Visit Provider Internal Medicine Rheumatology | DX: M05.79 Rheumatoid arthritis with rheumatoid factor of multiple sites without organ or systems involvement (principal); Z79.899 Other long term (current) drug therapy; Z71.85 Encounter for immunization safety counseling; M17.0 Bilateral primary osteoarthritis of knee; M25.561 Pain in right knee; M25.562 Pain in left knee | CPT/HCPCS: 36415; 80076; 82565; 85025; 85651; 86140; 99214 ==

== ENCOUNTER 2024-07-17 08:42 | Outpatient (CLI) | payer MEDICARE, MEDICAID, SELFPAY ==
--- NOTE | 2024-07-17 08:46 | XRR_ITS ---
PROCEDURE INFORMATION: Exam: XR Left Knee Exam date and time: 07/17/2024 8:52 AM Age: 63 years old Clinical indication: Pain; Knee; Left; Additional info: M17.0 - bilateral primary osteoarthritis of knee TECHNIQUE: Imaging protocol: Radiologic exam of the left knee. Views: 3 views. COMPARISON: CR XR knee LT 3V* [id number] 07/06/2021 1:54 PM FINDINGS: Bones/joints: Mild joint space narrowing involving the medial knee compartment. Osteophyte formation is seen in medial and lateral knee compartment. There is no fracture or joint dislocation. Bony alignment is preserved. Soft tissues: Normal. XR/XR knee LT 3V* [id number] IMPRESSION: Mild DJD as described
--- NOTE | 2024-07-17 08:46 | XRR_ITS ---
PROCEDURE INFORMATION: Exam: XR Right Knee Exam date and time: 07/17/2024 8:52 AM Age: 63 years old Clinical indication: Pain; Knee; Right; Additional info: M17.0 - bilateral primary osteoarthritis of knee TECHNIQUE: Imaging protocol: Radiologic exam of the right knee. Views: 3 views. COMPARISON: CR XR knee RT 3V* [id number] 07/06/2021 1:54 PM FINDINGS: Bones/joints: There is joint space narrowing involving the medial knee compartment. Bilateral knee compartment osteophyte is seen. There is no fracture or joint dislocation. Bony alignment is preserved. Soft tissues: Normal. XR/XR knee RT 3V* [id number] IMPRESSION: Moderate DJD as described
== END 2024-07-17 08:43 | disposition home or self-care (01) ==
PROVIDERS: PCP Family Medicine; Visit Provider Internal Medicine Rheumatology
DX: M17.0 Bilateral primary osteoarthritis of knee (principal); Z79.899 Other long term (current) drug therapy; M25.762 Osteophyte, left knee; M25.761 Osteophyte, right knee
CPT/HCPCS: 73562

== ENCOUNTER 2024-10-02 09:08 | Outpatient (CLI) | payer MEDICARE, MEDICAID, SELFPAY ==
[2024-10-02 09:26] VITALS: PULSE 106; RESP 20; O2SAT 88
== END 2024-10-02 09:09 | disposition home or self-care (01) ==
PROVIDERS: PCP Family Medicine; Visit Provider Family Medicine
DX: J44.9 Chronic obstructive pulmonary disease, unspecified (principal); J98.8 Other specified respiratory disorders; R94.2 Abnormal results of pulmonary function studies
CPT/HCPCS: 94060; 94726; 94729; J7613

== ENCOUNTER → 2024-11-30 12:11 | Outpatient (BNVA) | payer MEDICARE, MEDICAID, SELFPAY | PROVIDERS: PCP Family Medicine; Visit Provider Internal Medicine | DX: J44.9 Chronic obstructive pulmonary disease, unspecified (principal); Z12.2 Encounter for screening for malignant neoplasm of respiratory organs; R91.8 Other nonspecific abnormal finding of lung field; Z72.0 Tobacco use; Z99.81 Dependence on supplemental oxygen | CPT/HCPCS: 99214 ==

== ENCOUNTER 2025-02-28 09:43 | Outpatient (CLI) | payer MEDICARE, MEDICAID, SELFPAY ==
--- NOTE | 2025-02-28 10:15 | CT_ITS ---
WS: [id number] LDCT LUNG CANCER SCREENING HISTORY: COPD TECHNIQUE: Axial imaging performed from the apices to 1 cm below the costophrenic angles. Coronal and sagittal reformats are submitted with axial MIP series. All CT scans at [facility] use at least one of these dose optimization techniques: automated exposure control; mA and/or kV adjustment per patient size (includes targeted exams where dose is matched to clinical indication); or iterative reconstruction. DLP: 94.39 mGy.cm DIvol: Mean CTDIvol: 2.20 (mGy) COMPARISON: 02/27/2024 Diagnostic quality: Satisfactory Lungs: There are a few very small peripheral micronodules. 3 mm nodule periphery RIGHT upper lobe, image 141 series 5. Calcified 3 mm nodule in the RIGHT middle lobe. No suspicious or spiculated nodule. No nodules increasing in size. No endobronchial lesions. Heart: Normal size heart with no pericardial effusion.. No pericardial or pleural effusions. Other findings: No mediastinal or hilar adenopathy. Mild atherosclerosis aorta. Suprarenal aortic calcifications. CT/CT lung screening [id number] IMPRESSION: LUNG-RADS: 2-Benign Appearance or Behavior FOLLOW UP: 12 Month: Continue annual screening with LDCT OTHER FINDINGS (S MODIFIER): None.
== END 2025-02-28 09:44 | disposition home or self-care (01) ==
LOC: RAD 09:43
PROVIDERS: PCP Family Medicine; Visit Provider Internal Medicine
DX: Z12.2 Encounter for screening for malignant neoplasm of respiratory organs (principal); F17.210 Nicotine dependence, cigarettes, uncomplicated; R91.8 Other nonspecific abnormal finding of lung field; I70.0 Atherosclerosis of aorta
CPT/HCPCS: 71271